=== PATIENT | female | born 1980 | race Caucasian/White ===

== ENCOUNTER 2016-04-18 12:22 | Emergency (ER) | payer MEDICAID, OTHER ==
[~2016-04-18] VITALS: Ht 170.2 cm; Wt 63.5 kg
[~2016-04-18 12:22] MED LIST: DULO60CA45 PO; GABA100C PO
[2016-04-18 13:26] LABS: BASOPHILS # (AUTO) 0.1 /CMM (0.0-0.2); DIFF TOTAL % 100 %; EOSINOPHILS # (AUTO) 0.1 /CMM (0.0-0.7); EOSINOPHILS % (AUTO) 0.6 % (0.0-6.0); HEMATOCRIT 43 % (33-45); HEMOGLOBIN 14.6 g/dL (11.5-14.8); LYMPHOCYTES # (AUTO) 2.3 /CMM (0.8-4.8); LYMPHOCYTES % (AUTO) 27.9 % (20.0-44.0); MEAN CORPUSCULAR HEMOGLOBIN 31 PG (26.0-33.0); MEAN CORPUSCULAR HGB CONC 34 g/dl (31.0-36.0); MEAN CORPUSCULAR VOLUME 92 fL (82-100); MONOCYTES # (AUTO) 0.6 /CMM (0.1-1.30); MONOCYTES % (AUTO) 7.4 % (2.0-12.0); NEUTROPHILS # (AUTO) 5.3 /CMM (1.8-8.9); NEUTROPHILS % (AUTO) 63.1 % (43.0-81.0); PLATELET COUNT (AUTO) 235 /CMM (150-450); RED BLOOD CELL COUNT(AUTO) 4.71 MIL/uL (4.0-5.2); WHITE BLOOD COUNT (AUTO) 8.4 K/uL (4.3-11.0)
[2016-04-18] MEDS ORDERED: ONDANSETRON HCL/PF 4 MG/2 ML VIAL IVP ONE (13:30)
[2016-04-18] MEDS ORDERED: IV NS 0.9% 1,000 ML BAG IV ONE (13:30)
[2016-04-18] MEDS ORDERED: MORPHINE SULFATE INJ 2 MG/ML DISP.SYRIN IV ONE (13:30)
[2016-04-18 13:32] LABS: CREATININE 1.1 mg/dL (0.6-1.3); POTASSIUM 3.9 mmol/L (3.5-5.1)
[2016-04-18 13:38] LABS: INR 0.95 (0.87-1.13)
[2016-04-18 13:39] LABS: ALBUMIN 3.8 g/dL (3.4-5.0); BILIRUBIN,DIRECT 0.1 mg/dL (0.0-0.2); BILIRUBIN,TOTAL 0.3 mg/dL (0.2-1.0); INDIRECT BILIRUBIN 0.2 mg/dL (0.0-1.1); TOTAL PROTEIN, SERUM 7.5 g/dL (6.4-8.2)
[2016-04-18] MEDS ORDERED: IV NS 0.9% 250 ML IV ONE (13:49)
[2016-04-18] MEDS ORDERED: IOHEXOL-300 100 ML VIAL IV ONE (13:49)
[2016-04-18] MEDS ORDERED: CT SWABBABLE VALVE TRANS SET 1 EA INFUS.SET MC ONE (13:49)
[2016-04-18] MEDS ORDERED: MORPHINE SULFATE INJ 2 MG/ML DISP.SYRIN ONE (14:26)
[2016-04-18] MEDS ORDERED: ONDANSETRON HCL/PF 4 MG/2 ML VIAL ONE (14:26)
[2016-04-18] MEDS ORDERED: IV SET PRIMARY 1 EA INFUS.SET MC ONE (14:27)
[2016-04-18] MEDS ORDERED: IV NS 0.9% 1,000 ML ONE (14:27)
[2016-04-18 15:04] LABS: ADD UA MICROSCOPIC NO; KETONES,URINE NEGATIVE (NEGATIVE); LEUKOCYTE ESTERASE ,URINE NEGATIVE (NEGATIVE)
[2016-04-18 15:31] VITALS: BP 112/76
== END 2016-04-18 15:33 | disposition home or self-care (01) ==
LOC: ER 12:30
DX: K59.00 Constipation, unspecified (principal); F32.9 Major depressive disorder, single episode, unspecified; Z88.1 Allergy status to other antibiotic agents; Z88.0 Allergy status to penicillin
CPT/HCPCS: 36415; 71010; 74160; 76856; 80048; 80076; 81001; 83690; 84703; 85025; 85730; 96361; 96374; 96375; 99285; A4606; J2270; J2405; J7030; J7050; Q9967; Z7610; 81000-TC